=== PATIENT | male | born 1945 | race Caucasian/White ===

== ENCOUNTER → 2017-09-18 | Outpatient (CLI) | payer OTHER, MEDICARE ==
--- NOTE | 2017-09-21 13:40 | POLYSOMNOGRAPH REPORT ---
CLINICAL DATA: 72-year-old male with BMI of 34.4 referred by myself for evaluation of possible sleep apnea. His reports loud snoring and witnessed apneic episodes. He does have hypertension. On the evening of 09/18/2017, a home sleep apnea test was performed using a [employer] type 3 monitor. RECORDING RESULTS: Total recording time was 10 hours. The patient's monitoring time and estimated sleep time was 8.8 hours. RESPIRATORY DATA: Moderate sleep apnea was documented. The DICK was 22.3. There were 29 obstructive, 16 mixed, and 59 central apneic episodes. There were 93 hypopneic episodes. The longest respiratory event was 55 seconds. OXIMETRY DATA: Nocturnal hypoxemia was seen. Oxygen jaylon was 75%. Mean saturation was 92%. Time below 89% was 37 minutes. HEART RATE DATA: Heart rates ranged from 62-74 beats per minute. SNORING DATA: Snoring was recorded throughout the night. AGRICULTURAL CROP FARM MANAGER'S COMMENTS: Snoring was present throughout the test. Hypopneas and apneas were seen. There were frequent central apneic episodes of unclear significance. IMPRESSION: Moderate sleep apnea/hypopnea with an DICK of 22.3 with intermittent nocturnal hypoxemia. RECOMMENDATIONS: The patient may benefit from a repeat sleep study with CPAP, use of auto CPAP, or use of an oral appliance. RATNA
== END | disposition home or self-care (01) ==
LOC: C.NEUR 13:32
PROVIDERS: ATTEND Internal Medicine Pulmonary Disease
DX: R06.83 Snoring (principal); R06.81 Apnea, not elsewhere classified

== ENCOUNTER → 2017-10-23 | Outpatient (CLI) | payer OTHER, MEDICARE ==
--- NOTE | 2017-10-24 06:17 | PAP/PSG TECHNICIAN REPORT ---
[facility] Design Intern Polysomnogram Report Study name: None Report date: 10/24/2017 Study date: 10/23/2017 Referring Physician: Sean Coyle M.D. Name: OPAL BOYD Interpreting Physician: Sean Coyle M.D. Date of : 1945 Design Intern: Claribel Granda, PSGT. Sex: Male Age: 72 StudyType: PSG Weight: 250 lbs Height: 72 years, Height 6' 1" Neck Circum:17.5 inches BMI: 32.98 Medications: Aspirin 81 mg, Atorvastatin Calcium 20 mg, Co Q 10 40 mg, Losartan 100 mg, Multi-Vit, [place] -3, Vit.D-3... Patient History 72 yr. old male in room 5, presents tonight for a titration sleep study. Patient had a has done in September 2017 and had a RDIof 22. Parameters Monitored NPSG: E1-M2, E2-M1, Fp1-M2, Fp2-M1, F3-M2, F4-M2, F4-M1, C3-M2, C4-M2, C4-M1, O1-M2, O2-M2, O2-M1, T3-M2, T4-M1, P3-M2, P4-M1, CHIN1, CHIN2, HR, EKG, Legs, PFLOW, SNOR, FLOW, CFLOW, Tidal Volume, THOR, ABDO, SpO2, PLTH, CPRESS, ETCO2 Wave, ETCO2, pH Sleep Architecture Sleep Stages Time at Lights Off 10:55:27 PM STAGES Time (min.) TST (%) Time at Lights On 5:34:27 AM Wake 144.5 -- Total Recording Time (TRT) 400.50 min. N1 36.5 14 Total Sleep Period (TSP) 353.5 min. N2 166.5 65 Total Sleep Time (TST) 254.5min. N3 0.0 0 Awake Time 144.5 min. REM 51.5 20 Wake after Sleep Onset 99.0 min. Sleep Efficiency (SE) 64 % Sleep Onset Latency (CHRISTIANO) 45.5 min. Number of Stage 1 Shifts None Awakenings 17 Stage Changes 62 Number of REM periods 4 REM 51.5 20 REM Latency 162.0 min. NREM 203.0 80 Body Position Analysis Supine Right Left Side Prone Vertical Total Sleep Time (min.) 398.8 0.0 0.0 0.00 0.0 0.2 Total Sleep Time (%) 100% 0% 0% 0 0% N/A% Total Sleep Time REM (min.) 51.5 0.0 0.0 None 0.0 0.0 Total Sleep Time NREM (min.) 203.0 0.0 0.0 None 0.0 0.0 Intermittent Wake (min.) 144.3 0.0 0.0 None 0.0 0.2 Total Sleep Period (%) 100% None None None None None Arousals Myoclonus (PLM) * Events Count Index Events Count Index Spontaneous 20 5 Events Awake (PLMW) 7 2.9 Respiratory 4 0.9 Events Asleep w/ Arousal (PLMA) 9 2.1 PLM 9 2 Events Asleep w/o Arousal (PLMS) 156 36.8 Snoring 1 0 Total Asleep 165 38.9 Total 35 8 Total 172 26 Respiratory Analysis * CA OA MA CH H RERA Total Count 0 0 0 0 23 0 23 Index 0.0 0.0 0.0 0 5.4 0 5.4 Mean Duration 0.0 0.0 0.0 0.00 16.9 0.0 16.9 Longest Duration 0.0 0.0 0.0 0.00 0.0 0.0 34.2 Respiratory Event Summary Total Supine ~Supine Right Left Prone REM NREM Apneas Count 0 0 N/A N/A N/A N/A 0 0 Index 0.0 0 N/A N/A N/A N/A 0 0 Hypopneas (4% Desat) Count 23 23 N/A N/A N/A N/A 5 18 Index 5.4 5.4 N/A N/A N/A N/A 5.8 5.3 Apneas & All Hypopneas Count 23 23 N/A N/A N/A N/A 5 18 Index 5.4 5 N/A N/A N/A N/A 5.8 5.3 Respiratory Events (Client Service Consultant+All Hyp+RERA) Count 23 23 N/A N/A N/A N/A 5 18 Index 5.4 5 N/A N/A N/A N/A 5.8 5.3 Respiratory Related Arousal Count 4 23 N/A N/A N/A N/A 3 1 Index 0.9 1 N/A N/A N/A N/A 3 0 Snoring Analysis Supine Right Left Prone REM NREM Total Snore duration 0.6 min Snores count 25 N/A N/A N/A 3 22 25 Snore mean duration 1.4 Sec Snores index 6 N/A N/A N/A 3.5 6.5 5.9 TST with snoring (%) 0.2% Desaturation Event Summary: Minimum %SpO2 Event Count Mean/Min/Max Duration(sec.) Desaturation Index % Time In Bed > 90 29 24.6 / 10.0 / 54.0 7.1 64.4 86 - 90 16 23.3 / 5.8 / 58.8 7.4 34.2 81 - 85 0 N/A 0.0 1.3 76 - 80 0 N/A 0.0 0.0 71 - 75 0 N/A 0.0 0.0 66 - 70 0 N/A 0.0 0.0 61 - 65 0 N/A 0.0 0.0 56 - 60 0 N/A 0.0 0.0 51 - 55 0 N/A 0.0 0.0 < 50 0 N/A 0.0 0.0 Total REM NREM Awake <50% 0.0 min. 0.0 min. 0.0 min. 0.0 min. 51 - 60% 0.0 min. 0.0 min. 0.0 min. 0.0 min. 61 - 70% 0.0 min. 0.0 min. 0.0 min. 0.0 min. 71 - 80% 0.1 min. 0.0 min. 0.0 min. 0.1 min. 81 - 90% 135.2 min. 25.6 min. 98.1 min. 11.5 min. 91 - 100% 245.1 min. 25.6 min. 98.2 min. 121.2 min. Average 91 90 91 93 Minimum SpO2 80 81 82 80 Desaturation Event Index 5.4 4.7 9.5 0.0 # Desat. Events below 89% 31 4 27 0 Time(%) with Saturation below 89% 4.9 0.8 2.8 1.3 Time(min.) with Saturation below 89% 18.6 3.1 10.7 4.8 Heart Rate Analysis End Tidal CO2 Analysis Min (bpm) Max (bpm) Average (bpm) TSP (mins) % of TSP Awake 61 155 77 Above 55 mmHg 0.0 0.0 NREM 67 127 74 50-55 mmHg 0.0 0.0 REM 67 127 73 45-50 mmHg 254.5 100.0 Overall 67 127 74 40-45 mmHg 0.0 0.0 35-40 mmHg 0.0 0.0 30-35 mmHg 0.0 0.0 Average ETCO2 0.0 Supplemental O2 Values Minimum O2 level: None Value Start Time End Time Design Intern Comments Bi-Level Study: Patient was started on 4 cm of c-pap patient called tech in the room twice stating he wasn't getting enough air. Pressure was increased to 8 cm h2o, Mr Lake was then started on bi-pap and he stated at that time he was able to tolerate bi-pap much easier. slept in the supine positions. No cardiac arrhythmia or PLM's noted. No bruxism noted. PAP initiated at an IPAP of +4 CMH2O and an EPAP of +8 CMH2O up-titrated to an optimal level of: IPAP +11 CMH2O, EPAP + 4 CMH20 which nearly eliminated all respiratory events and snoring. A [employer] fx wide, was used during titration awoke to use the restroom one time during the night. stated, I did not sleep as well as I do when I am in my own bed. The final report will be interpreted and signed by a sleep physician. The completed physician report will then be placed in the patient medical record. Patient had a difficult time tolerating c-pap once it had reached 8 cm h2o, and still stated he couldn't breathe Bi -Pap was started I-pap 8 cm E-pap 4 cm, patient had requested nasal pillows but was unable to tolerate the nasal pillows and a nasal mask was then tried and he seemed to like that much better. Patient will discuss home health agency with [facility] when he comes in for his follow-up appointment. Therapy Event: Therapy (cm H20) 0 4 6 8/4 9/4 10/4 11/4 Total Time at Pressure (min.) 1.1 6.7 30.0 146.1 29.7 103.3 81.9 TST at Pressure (min.) 0.0 0.0 0.0 49.5 29.7 99.8 75.5 # Periods 1 1 1 1 1 1 1 Sleep Onset (min.) N/A N/A N/A 7.6 0.0 0.0 1.4 REM Onset (min.) N/A N/A N/A N/A 23.5 0.0 77.4 Sleep Efficiency % 0 0 0 33 100 96 92 Wakefulness (%) 100.0 100.0 100.0 66.1 0.0 3.5 7.8 Wakefulness (min.) 1.1 6.7 30.0 96.6 0.0 3.6 6.4 NREM 1 (%) 0.0 0.0 0.0 12.3 10.1 4.4 13.4 NREM 1 (min.) 0.0 0.0 0.0 18.0 3.0 4.5 11.0 NREM 2 (%) 0.0 0.0 0.0 21.5 69.0 52.7 73.2 NREM 2 (min.) 0.0 0.0 0.0 31.5 20.5 54.5 60.0 NREM 3 (%) 0.0 0.0 0.0 0.0 0.0 0.0 0.0 NREM 3 (min.) 0.0 0.0 0.0 0.0 0.0 0.0 0.0 REM (%) 0.0 0.0 0.0 0.0 20.9 39.5 5.5 REM (min.) 0.0 0.0 0.0 0.0 6.2 40.8 4.5 # Arousals N/A N/A N/A 12 8 8 7 Arousal Index N/A N/A N/A 14.5 16.1 4.8 5.6 # Snore N/A N/A N/A 5 4 3 13 Snore Index N/A N/A N/A 6.1 8.1 1.8 10.3 AHI N/A N/A N/A 17.0 6.1 3.0 0.8 AHI Supine N/A N/A N/A 17.0 6.1 3.0 0.8 AHI Non-Supine N/A N/A N/A N/A N/A N/A N/A NREM AHI N/A N/A N/A 17.0 5.1 1.0 0.8 REM AHI N/A N/A N/A N/A 9.6 5.9 0.0 RDI N/A N/A N/A 17.0 6.1 3.0 0.8 # Obstructive N/A N/A N/A 0 0 0 0 # Central Ap N/A N/A N/A 0 0 0 0 # Mixed N/A N/A N/A 0 0 0 0 # Hypopneas N/A N/A N/A 14 3 5 1 RERAS N/A N/A N/A 0 0 0 0 Total Respiratory Events N/A N/A N/A 14 3 5 1 Time Below SpO2 89.00% (min.) 0.0 0.0 0.0 7.8 2.4 2.6 1.0 Mean NREM SpO2 (%) N/A N/A N/A 90 90 91 91 Mean REM SpO2 (%) N/A N/A N/A N/A 90 90 90 Mean Sleep SpO2 (%) N/A N/A N/A 90 90 91 91 Min NREM SpO2 (%) N/A N/A N/A 82 82 86 87 Min REM SpO2 (%) N/A N/A N/A N/A 81 84 87 Position Supine (min.) 0.0 0.0 0.0 49.5 29.7 99.8 75.5 Position Non-supine (min.) 0.0 0.0 0.0 0.0 0.0 0.0 0.0 LM Index Sleep N/A N/A N/A 26.7 38.3 51.7 30.2 LM Index NREM N/A N/A N/A 26.7 40.8 74.2 31.3 LM Index REM N/A N/A N/A N/A 28.9 19.1 13.3 Mean Heart Rate (bpm) N/A N/A N/A 77 76 73 72 Min Heart Rate (bpm) N/A N/A N/A 69 69 67 67
--- NOTE | 2017-10-24 09:57 | POLYSOMNOGRAPH REPORT ---
CLINICAL DATA: 72-year-old male with BMI of 33 referred by myself and Margaret Evans for CPAP study. He had a home sleep apnea test done in September which showed moderate sleep apnea with an DICK of 22. SLEEP ARCHITECTURE: Total sleep period was 353.5 minutes. Total sleep time was 254.5 minutes divided between 203 minutes of non-REM sleep and 51.5 minutes of REM sleep. Sleep onset latency was 45.5 minutes. REM latency was 162 minutes. Sleep efficiency was 64%. Wake after sleep onset was elevated at 99 minutes. Sleep consisted of stage N1 14%, stage N2 65%, and REM 20%. AROUSAL DATA: 35 arousals were recorded for an index of 8 per hour. PLM DATA: 165 limb movements during sleep were noted for an index of 39 per hour with arousal index of 2 per hour. RESPIRATORY DATA: The AHI was 5.4. There were 22 hypopneic episodes with a mean duration 16.9 seconds. OXIMETRY DATA: Nocturnal hypoxemia was seen. Oxygen jaylon was 81% during REM. The mean saturation was 91%. Time below 89% was 18.6 minutes. EKG: Heart rates ranged from 67-127 beats per minute. No arrhythmias were noted. TRACK LABORER'S COMMENTS AND TREATMENT SUMMARY: The patient was started on CPAP initially with nasal pillows and then a nasal mask. At 4 cm of water pressure, he stated he was not getting enough air and so the pressure was increased to 8 cm of water pressure. He could not tolerate CPAP so he was switched to BIPAP and he felt much more comfortable on BiPAP. He was started on BiPAP 8/4 and titrated up to optimal level of BiPAP 11/4 with a [employer] FX wide mask. At this final pressure setting, he slept for 75.5 minutes with an AHI of 0.8. IMPRESSION: Moderate sleep apnea/hypopnea corrected with BiPAP 11/4 nasal mask. RECOMMENDATIONS: The patient will be seen back in the clinic for followup and to discuss institution of BiPAP therapy. RATNA
== END | disposition home or self-care (01) ==
LOC: C.NEUR 21:00
PROVIDERS: ATTEND Physician Assistant Medical
DX: G47.30 Sleep apnea, unspecified (principal)